=== PATIENT | male | born 1960 | race African-American/Black ===

== ENCOUNTER 2017-09-23 15:32 | Emergency (ER) | payer MEDICARE ==
[~2017-09-23] VITALS: Ht 172.7 cm; Wt 108.5 kg
[2017-09-23 15:39] VITALS: BP 117/67; PULSE 93; RESP 22; TEMP 97.3; O2SAT 94
--- NOTE | 2017-09-23 16:19 | PD ---
HPI Chief Complaint: Skin Problem Time Seen by Provider: 15:50 Travel History International Travel<30 days: No Contact w/Intl Traveler<30days: No Traveled to known affect area: No History of Present Illness HPI 57-year-old male with history of CHF, hypertension, gout, diabetes presents to the emergency room for evaluation of itchy rash to his abdomen for the past several weeks. Patient went to elementary education teacher 1 week ago and was prescribed a topical cream. He has been applying the cream as directed for 1 week and has not improved his symptoms. He has a follow-up appointment with a elementary education teacher in 2 days. Patient states the itchiness affects his quality of life because it is constant and severe. He also has burning sensation. States he applies topical lidocaine cream with moderate relief in symptoms. He read online to stop all of his medications and slowly begin taking them to see if the medications were the culprit. Symptoms are localized to the abdomen and pelvis region. He has not been taking anything by mouth for itching. He is concerned that it is a symptom of kidney or liver failure. [facility] Past Medical History Cardiovascular Problems: Yes Diabetes: Yes Social History Tobacco Use: No Allergies-Medications (Allergen,Severity, Reaction): Coded Allergies: No Known Allergies (Unverified , 09/23/17) Reported Meds & Prescriptions Reported Meds & Active Scripts Active Mupirocin Topical (Mupirocin) 2 % Oint 1 Applic TOPICAL BID Selenium Sulfide Topical 2.5% (Selenium Sulfide) 2.5 % Lotn 1 Applic TOPICAL DAILY Vistaril (Hydroxyzine Pamoate) 50 Mg Cap 50 Mg PO TID PRN Review of Systems Except as stated in HPI: all other systems reviewed are Neg Physical Exam Narrative GENERAL: Well-nourished, well-developed male in no acute distress. Afebrile. Ambulatory. SKIN: Focused skin assessment warm/dry. Erythematous macular lesions ranging from 1-3 mm in diameter throughout the abdomen. Mild excoriations. No drainage. He also has a 2 cm in diameter healing wound to the right kneecap. No surrounding erythema or edema. No increased warmth. No drainage. No lymphangitis. HEAD: Normocephalic. EYES: No scleral icterus. No injection or drainage. NECK: Supple, trachea midline. No JVD or lymphadenopathy. CARDIOVASCULAR: Regular rate and rhythm without murmurs, gallops, or rubs. RESPIRATORY: Breath sounds equal bilaterally. No accessory muscle use. MUSCULOSKELETAL: No cyanosis. Full range of motion of bilateral lower extremities. 2+ pitting edema bilaterally. 2+ dorsalis pedis pulses bilaterally. Data Data Last Documented VS Vital Signs Date Time Temp Pulse Resp B/P (MAP) Pulse Ox O2 Delivery O2 Flow Rate FiO2 09/23/17 15:39 97.3 93 22 117/67 (84) 94 Orders Orders Complete Blood Count With Diff (09/23/17 16:05) Comprehensive Metabolic Panel (09/23/17 16:07) Labs Laboratory Tests Test 09/23/17 15:00 09/23/17 16:10 White Blood Count 8.8 TH/MM3 Red Blood Count 5.01 MIL/MM3 Hemoglobin 15.2 GM/DL Hematocrit 46.2 % Mean Corpuscular Volume 92.1 FL Mean Corpuscular Hemoglobin 30.3 PG Mean Corpuscular Hemoglobin Concent 32.9 % Red Cell Distribution Width 16.5 % Platelet Count 206 TH/MM3 Mean Platelet Volume 7.9 FL Neutrophils (%) (Auto) 77.9 % Lymphocytes (%) (Auto) 10.7 % Monocytes (%) (Auto) 10.2 % Eosinophils (%) (Auto) 0.7 % Basophils (%) (Auto) 0.5 % Neutrophils # (Auto) 6.8 TH/MM3 Lymphocytes # (Auto) 0.9 TH/MM3 Monocytes # (Auto) 0.9 TH/MM3 Eosinophils # (Auto) 0.1 TH/MM3 Basophils # (Auto) 0.0 TH/MM3 CBC Comment DIFF FINAL Differential Comment Blood Urea Nitrogen 35 MG/DL Creatinine 1.74 MG/DL Random Glucose 113 MG/DL Total Protein 6.4 GM/DL Albumin 3.5 GM/DL Calcium Level 8.3 MG/DL Alkaline Phosphatase 138 U/L Aspartate Amino Transf (AST/SGOT) 75 U/L Alanine Aminotransferase (ALT/SGPT) 93 U/L Total Bilirubin 2.1 MG/DL Sodium Level 139 MEQ/L Potassium Level 3.8 MEQ/L Chloride Level 100 MEQ/L Carbon Dioxide Level 30.8 MEQ/L Anion Gap 8 MEQ/L Estimat Glomerular Filtration Rate 41 ML/MIN [facility] Medical Decision Making Medical Screen Exam Complete: Yes Emergency Medical Condition: Yes Medical Record Reviewed: Yes Differential Diagnosis Viral rash, medication side effect, allergy, liver failure, tinea versicolor Narrative Course 57-year-old male with multiple chronic medical conditions including chronic kidney disease presents to the emergency room for evaluation of 2 separate complaints. First complaint is abdominal rash for the past month but is not improving with the medication a elementary education teacher gave him. States it is affecting his activities of daily living. Second complaint is right knee abrasion that has not healed in the past week. Patient keeps scratching it and breaking the scab. Physical exam reveals a erythematous macular rash localized to the abdomen. The macules range anywhere from 1-3 mm and many of them have scaling and central clearing. It appears most likely fungal in nature. His knee does not appear to have any secondary evidence of infection. CBC is unremarkable. CMP shows elevated creatinine and slightly elevated liver enzymes. Bilirubin is 2.1. Could be contributing to itchiness but unlikely causing rash. He has a follow-up appointment with his elementary education teacher in 2 days. He was instructed to keep the appointment for outpatient scratch biopsy if necessary. He was told to continue the cream that his elementary education teacher prescribed and Vistaril will be added. There is yellow eschar tissue but no erythema, drainage, or extreme tenderness to palpation. I will treat empirically with mupirocin. Patient was told to continue all of his medications, especially digoxin, levothyroxine, and Bumex. He will follow-up with his elementary education teacher and his primary care physician. Patient had no other complaints today, stable vital signs, and with history of chronic kidney disease, would prefer not to be admitted if he does not need to be. I feel he can be seen as an outpatient and my attending physician agrees. Diagnosis Primary Impression: Tinea versicolor Additional Impression: Chronic kidney disease Qualified Codes: N18.9 - Chronic kidney disease, unspecified Referrals: [employer] Additional Instructions: Your creatinine today was 1.74. Follow-up with your primary care physician about this. Vistaril as directed, as needed for itchiness. Apply selenium sulfide affected area and lather with small amounts of water; leave on skin for 10 minutes, then rinse thoroughly; repeat once every day for 7 days. Mupirocin twice daily to the knee wound for 7 days. Follow-up with your elementary education teacher and her PCP. Restart your medications. Return to the emergency room for worsening symptoms. Med/Other Pt SpecificInfo: Prescription(s) given Scripts Mupirocin Topical (Mupirocin Topical) 2 % Oint 1 APPLIC TOPICAL BID for Mgmt Bacterial Infection, #22 GM 0 Refills Prov: Jimenez Corrales MD 09/23/17 Selenium Sulfide Topical 2.5% (Selenium Sulfide Topical 2.5%) 2.5 % Lotn 1 APPLIC TOPICAL DAILY, #1 BOTTLE 0 Refills Prov: Jimenez Corrales MD 09/23/17 Hydroxyzine Pamoate (Vistaril) 50 Mg Cap 50 MG PO TID Y for ITCHING, #21 CAP 0 Refills Prov: Jimenez Corrales MD 09/23/17 Disposition: 01 DISCHARGE HOME Condition: Stable Zully Delgado September 23, 2017 16:19
[2017-09-23 16:44] LABS: AUTOMATED NEUTROPHIL # 6.8 TH/MM3 (1.8-7.7); BASOPHIL % 0.5 % (0.0-2.0); EOSINOPHIL # 0.1 TH/MM3 (0-0.4); EOSINOPHIL % 0.7 % (0.0-4.0); HEMATOCRIT 46.2 % (39.0-51.0); HEMOGLOBIN 15.2 GM/DL (13.0-17.0); LYMPH % 10.7 % (9.0-44.0); LYMPHOCYTE # 0.9 TH/MM3 (1.0-4.8); MEAN CELL VOLUME 92.1 FL (80.0-100.0); MEAN CORPUSCULAR HEMOGLOBIN 30.3 PG (27.0-34.0); MEAN CORPUSCULAR HGB CONC 32.9 % (32.0-36.0); MEAN PLATELET VOLUME 7.9 FL (7.0-11.0); MONO % 10.2 % (0.0-8.0); MONOCYTE # 0.9 TH/MM3 (0-0.9); NEUT % 77.9 % (16.0-70.0); PLATELET COUNT 206 TH/MM3 (150-450); RED BLOOD COUNT 5.01 MIL/MM3 (4.50-5.90); RED CELL DISTRIBUTION WIDTH 16.5 % (11.6-17.2); WHITE BLOOD COUNT 8.8 TH/MM3 (4.0-11.0)
[2017-09-23] MEDS ORDERED: VIST50CA PO (17:02)
[2017-09-23 17:04] LABS: ALKALINE PHOSPHATASE 138 U/L (45-117); ALT (GPT) 93 U/L (12-78); TOTAL BILIRUBIN ADULT 2.1 MG/DL (0.2-1.0); TOTAL PROTEIN 6.4 GM/DL (6.4-8.2)
[2017-09-23] MEDS ORDERED: SELE2.5%T TOPICAL (17:10)
[2017-09-23] MEDS ORDERED: MUPI2OIN TOPICAL (17:10)
[2017-09-23 17:19] LABS: ALBUMIN 3.5 GM/DL (3.4-5.0); AST (GOT) 75 U/L (15-37); BICARBONATE 30.8 MEQ/L (21.0-32.0); CALCIUM 8.3 MG/DL (8.5-10.1); CHLORIDE 100 MEQ/L (98-107); CREATININE 1.74 MG/DL (0.60-1.30); GLOMERULAR FILTRATION RATE 41 ML/MIN (>89); GLUCOSE,RANDOM 113 MG/DL (74-106); SODIUM (NA) 139 MEQ/L (136-145)
[2017-09-23 17:20] LABS: BLOOD UREA NITROGEN 35 MG/DL (7-18)
[2017-09-23 18:05] VITALS: BP 107/67; PULSE 68; RESP 16; O2SAT 96
== END 2017-09-23 18:07 | disposition home or self-care (01) ==
LOC: NEPK 15:32
DX: B36.0 Pityriasis versicolor (principal); I13.0 Hypertensive heart and chronic kidney disease with heart failure and stage 1 through stage 4 chronic kidney disease, or unspecified chronic kidney disease; E11.22 Type 2 diabetes mellitus with diabetic chronic kidney disease; N18.9 Chronic kidney disease, unspecified; I50.9 Heart failure, unspecified
CPT/HCPCS: 80053; 85025; 99283